=== PATIENT | male | born 1965 | race Caucasian/White ===

== ENCOUNTER 2024-11-16 06:01 | Day surgery (SDC) | payer OTHER ==
[2024-11-16] MEDS: Lactated Ringers 1,000 ML IV SCH (06:23)
[2024-11-16 06:48] LABS: ANION GAP 11.9 MEQ/L (5-15); Calcium 9.3 mg/dL (8.4-10.2); Creatinine 1 1.08 mg/dL (0.66-1.25); EST GLOMERULAR FILTRATION RATE 78.6 ML/MIN; Potassium 4.1 mmol/L (3.5-5.1)
[2024-11-16] MEDS ORDERED: propofoL IV ONE ×2 (07:28→07:47)
[2024-11-16] MEDS ORDERED: Xylocaine-Mpf 2% 5 Ml Vial ONE (07:28)
[2024-11-16 08:00] VITALS: TEMP 97.7
[2024-11-16 08:16] VITALS: RESP 18; O2SAT 96
[2024-11-16 08:22] VITALS: BP 132/78; PULSE 70
--- NOTE | 2024-11-17 17:35 | OP ---
SURGERY DATE/TIME: 11/16/2024 [id number] PREOPERATIVE DIAGNOSIS: Screening exam. POSTOPERATIVE DIAGNOSIS: Sigmoid diverticulosis, otherwise normal colon. PROCEDURE: Colonoscopy. SURGEON: Brennan Falcon MD. ANESTHESIA: Medications were given by the anesthesia department. INDICATIONS: The patient is a 59-year-old white male presenting now here for a screening colonoscopy. The patient was apprised of the risks of the procedure including the risk of perforation, phlebitis, untoward reaction to medication, bleeding, and missed lesions. The patient verbalized his understanding and desire to have the procedure performed. DESCRIPTION OF PROCEDURE AND FINDINGS: Patient was given medication by the anesthesia department. He had continuous pulse oximetry, ECG monitoring, and intermittent blood pressure monitoring during the examination. He was placed in the left lateral decubitus position. Digital rectal examination was performed and revealed normal anal sphincter tone, no masses, normal prostate. The flexible Olympus videocolonoscope was used to intubate the rectum. A view of the colon was developed sequentially to the cecum. Upon insertion and withdrawal, it was noted sigmoid diverticulosis in a moderate amount. No other mucosal lesions were encountered. The scope was removed from the patient who tolerated the procedure well and was sent back to outpatient recovery in good condition. The prep was noted to be fair to sometimes poor.
== END 2024-11-16 08:29 | disposition home or self-care (01) ==
LOC: SDC 06:01
PROVIDERS: ATTEND Family Medicine
DX: Z12.11 Encounter for screening for malignant neoplasm of colon (principal); K57.30 Diverticulosis of large intestine without perforation or abscess without bleeding; I10 Essential (primary) hypertension
CPT/HCPCS: 36415; 80048; 93005; J2704